=== PATIENT | female | born 1985 | race Caucasian/White ===

== ENCOUNTER 2019-05-14 12:17 | Emergency (ER) | payer BC ==
[~2019-05-14] VITALS: Ht 172.7 cm; Wt 59.0 kg
[~2019-05-14 12:17] MED LIST: FLEXERIL PO; MOBIC15 MG PO; PREDNISONE 20 M20 MG PO
[2019-05-14] MEDS ORDERED: MONTELUKAST SOD10 MG PO (12:21)
[2019-05-14 12:37] LABS: URINE BILIRUBIN NEGATIVE (Negative); URINE BLOOD NEGATIVE (Negative); URINE CLARITY CLEAR; URINE COLOR YELLOW; URINE GLUCOSE-RANDOM* NEGATIVE (Negative); URINE KETONES NEGATIVE (Negative); URINE LEUKOCYTES-REFLEX NEGATIVE (Negative); URINE NITRITE-REFLEX NEGATIVE (Negative); URINE PROTEIN (DIPSTICK) NEGATIVE (Negative); URINE SPECIFIC GRAVITY <= 1.005 (1.005-1.035); URINE UROBILINOGEN 0.2 E.U./dl (0.2-1.0)
[2019-05-14 13:21] VITALS: BP 98/63
[2019-05-14] MEDS ORDERED: SENNA-DOCUSATE1 EAC1 PO (13:34)
[2019-05-14] MEDS ORDERED: MEDROLDOSEPACK PO (13:34)
[2019-05-14] MEDS ORDERED: NORCO 5-325 TA1 EAC1 PO (13:34)
[2019-05-14] MEDS ORDERED: NAPROSYN500 MG PO (13:34)
[2019-05-14] MEDS ORDERED: NORFLEX100 MG PO (13:34)
[2019-05-14 13:37] LABS: AMP/METHAMP Negative (Negative); BARBITURATES Negative (Negative); BENZODIAZEPINES Negative (Negative); COCAINE Negative (Negative); METHADONE Negative (Negative); OPIATES POSITIVE (Negative); PCP Negative (Negative)
== END 2019-05-14 13:50 | disposition home or self-care (01) ==
LOC: ER 12:17
PROVIDERS: Emergency Medicine
DX: S39.012A Strain of muscle, fascia and tendon of lower back, initial encounter (principal); J45.909 Unspecified asthma, uncomplicated; F17.210 Nicotine dependence, cigarettes, uncomplicated; X58.XXXA Exposure to other specified factors, initial encounter; Y92.89 Other specified places as the place of occurrence of the external cause; Y93.89 Activity, other specified; Y99.8 Other external cause status